=== PATIENT | female | born 1985 | race Asian ===

== ENCOUNTER 2017-07-11 07:10 | Inpatient (IN) | payer BC ==
[2017-07-11] MEDS ORDERED: Ondansetron 4 MG/2 ML SDV IVPUSH PRN ×2 (07:18→11:19)
[2017-07-11] MEDS ORDERED: Sodium Chloride 0.9% 10 ML Syringe FLUSH PRN (07:18)
[2017-07-11] MEDS ORDERED: Nalbuphine 20 MG/1 ML Amp IVPUSH PRN (07:18)
--- NOTE | 2017-07-11 07:21 | PCM.LDHP ---
L&D History of Present Illness - General Date of Service: 07/11/17 Admit Problem/Dx: Admission Diagnosis/Problem Admission Diagnosis/Problem Source of Information: Patient History Limitations: Reports: No Limitations - History of Present Illness Introduction:: Patient is a 32 y/o at 39 2/7 wks gestation who presents for elective IOL. This is a surrogate . Patient has been doing well. No complications throughout the . Biological father is here in town today , biological mother could not make it due to new diagnosis of leukemia. 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: : 5 Para: 4 LMP (Approximate): - Past Surgical History HEENT Surgical History: Reports: Oral Surgery (widom tooth) Female Surgical History: Reports: Cystectomy Social & Family History - Tobacco Use Smoking Status *Q: Never Smoker - Alcohol Use Alcohol Use History: No - Recreational Drug Use Recreational Drug Use: No H&P Review of Systems - Review of Systems: Review Of Systems: See Below General: Reports: No Symptoms Pulmonary: Reports: No Symptoms Cardiovascular: Reports: No Symptoms Gastrointestinal: Reports: No Symptoms Genitourinary: Reports: No Symptoms Musculoskeletal: Reports: No Symptoms Psychiatric: Reports: No Symptoms L&D Exam - Exam Exam: See Below - OB Specific Contraction Intensity: Irritability Movement: Active Heart Tones: Present Heart Tones per Min: 135 Heart Rate (FHR) Variability: Moderate (6-25 bmp) Presentation: Vertex - Keane Score Keane Score Cervix Position: Posterior Keane Score Consistency: Soft Keane Score Effacement: 51-70% Keane Score Dilation: 1-2 cm Keane Score Infant's Station: -1 ,0 Keane Score Total: 7 - Exam General: Alert, Oriented, Cooperative Lungs: Clear to Auscultation, Normal Respiratory Effort Cardiovascular: Regular Rate, Regular Rhythm GI/Abdominal Exam: Soft, Non-Tender Genitourinary: Normal external exam Extremities: Normal Inspection Skin: Warm, Dry, Intact - Patient Data Result Diagrams: 07/11/17 07:35 - Problem List (1) 39 weeks gestation of SNOMED Code(s): 66987150 ICD Code: Z3A.39 - 39 WEEKS GESTATION OF Status: Acute Current Visit: Yes (2) Surrogate SNOMED Code(s): 634727640 ICD Code: Z33.3 - STATE, GESTATIONAL CARRIER Status: Acute Current Visit: Yes (3) Elective induction of labor planned SNOMED Code(s): 299460267 ICD Code: [id number] - Status: Acute Current Visit: Yes Problem List Initiated/Reviewed/Updated: Yes Orders Last 24hrs: Active Orders 24 hr Category Date Time Status Communication Order [RC] ASDIRECTED Care 07/11/17 07:19 Ordered Communication Order [RC] ASDIRECTED Care 07/11/17 07:19 Ordered Communication Order [RC] ASDIRECTED Care 07/11/17 07:19 Ordered Monitoring [RC] INTERMITTENT Care 07/11/17 07:19 Ordered Notify Provider [RC] ASDIRECTED Care 07/11/17 07:19 Ordered Notify Provider [RC] PRN Care 07/11/17 07:19 Ordered Peripheral IV Care [RC] . DIRECTED Care 07/11/17 07:19 Ordered Up ad Sandra [RC] ASDIRECTED Care 07/11/17 07:19 Ordered Vaginal Exam [RC] ASDIRECTED Care 07/11/17 07:19 Ordered Vital Signs [RC] ASDIRECTED Care 07/11/17 07:19 Ordered Regular Diet [DIET] Diet 07/11/17 Breakfast Ordered CBC W/O DIFF,HEMOGRAM [HEME] Routine Lab 07/11/17 07:18 Ordered TYPE AND SCREEN [BBK] Routine Lab 07/11/17 07:18 Ordered Lactated Ringers [Ringers, Lactated] 1,000 ml Med 07/11/17 07:30 Ordered IV ASDIRECTED Nalbuphine [Nubain] Med 07/11/17 07:18 Ordered 10 mg IVPUSH Q2H PRN Ondansetron [Zofran] Med 07/11/17 07:18 Ordered 4 mg IVPUSH Q4H PRN Oxytocin/Lactated Ringers [Pitocin in LR 10 Units/1,000 Med 07/11/17 07:30 Ordered ML] 10 unit in 1,000 ml IV .CONTINUOUS Oxytocin/Lactated Ringers [Pitocin in LR 10 Units/1,000 Med 07/11/17 07:30 Ordered ML] 10 unit in 1,000 ml IV TITRATE Sodium Chloride 0.9% [Saline Flush] Med 07/11/17 07:18 Ordered 10 ml FLUSH ASDIRECTED PRN Electronic Heart Tones Internal [WOMSER] Per Unit Ot 07/11/17 07:19 Ordered Routine Peripheral IV Insertion Adult [OM.PC] Routine Oth 07/11/17 07:19 Ordered Resuscitation Status Routine Resus Stat 07/11/17 07:18 Ordered Assessment/Plan Comment:: 32-year-old at 39-2/7 weeks gestation presents for elective induction of labor * CBC and type and screen * GBS negative, no need for antibiotics * Pain management per patient preference * We'll start Pitocin and proceed with AROM when able * Anticipate * Hospital administration / oyster grader aware of surrogate status and have been working with the patient
[2017-07-11] MEDS ORDERED: Oxytocin/Lactated Ringers 10 UNIT/1,000 ML BAG IV SCH ×2 (07:30)
[2017-07-11] MEDS: Lactated Ringers 1,000 ML IV SCH ×2 (08:29→13:48)
[2017-07-11] MEDS ORDERED: Bupivacaine 0.25% 10 ML SDV ONE (10:00)
--- NOTE | 2017-07-11 10:11 | PCM.PREANE ---
Preanesthetic Assessment - Procedure Proposed Procedure: Labor Epidural - Anesthesia/Transfusion/Family Hx Anesthesia History: Prior Anesthesia Without Reaction Family History of Anesthesia Reaction: No Transfusion History: No Prior Transfusion(s) - Review of Systems General: No Symptoms Pulmonary: No Symptoms Cardiovascular: No Symptoms Gastrointestinal: No Symptoms Neurological: No Symptoms Other: Reports: None - Physical Assessment NPO Status Date: 07/11/17 NPO Status Time: 08:00 O2 Sat by Pulse Oximetry: 100 Respiratory Rate: 20 Vital Signs: Last Vital Signs Temp 36.1 C 07/11/17 07:37 Pulse 81 07/11/17 07:37 Resp 20 07/11/17 07:37 BP 146/88 H 07/11/17 07:37 Pulse Ox 100 07/11/17 07:37 Height: 1.65 m Weight: 84.822 kg ASA Class: 2 Mental Status: Alert & Oriented x3 Airway Class: Mallampati = 1 Dentition: Reports: Broken Tooth/Teeth (bottom left molar cracked) Thyro-Mental Finger Breadths: 3 Mouth Opening Finger Breadths: 3 ROM/Head Extension: Full Lungs: Clear to Auscultation, Normal Respiratory Effort Cardiovascular: Regular Rate, Regular Rhythm - Lab Values: Laboratory Last Values WBC 11.36 K/mm3 (3.98-10.04) H 07/11/17 07:35 RBC 4.39 M/mm3 (3.98-5.22) 07/11/17 07:35 Hgb 14.0 gm/L (11.2-15.7) 07/11/17 07:35 Hct 40.9 % (34.1-44.9) 07/11/17 07:35 MCV 93.2 fl (79.4-94.8) 07/11/17 07:35 MCH 31.9 pg (25.6-32.2) 07/11/17 07:35 MCHC 34.2 g/dl (32.2-35.5) 07/11/17 07:35 RDW Std Deviation 43.6 fL (36.4-46.3) 07/11/17 07:35 Plt Count 159 K/mm3 (182-369) L 07/11/17 07:35 MPV 12.2 fl (9.4-12.3) 07/11/17 07:35 Blood Type B POSITIVE 07/11/17 07:35 Gel Antibody Screen Negative 07/11/17 07:35 - Allergies Allergies/Adverse Reactions: Allergies Allergy/AdvReac Type Severity Reaction Status Date / Time No Known Allergies Allergy Verified 07/11/17 07:38 - Blood Blood Available: No Product(s) Available: None - Anesthesia Plan Pre-Op Medication Ordered: None - Acknowledgements Anesthesia Type Planned: Epidural (platelets 159) Pt an Appropriate Candidate for the Planned Anesthesia: Yes Alternatives and Risks of Anesthesia Discussed w Pt/Guardian: Yes Pt/Guardian Understands and Agrees with Anesthesia Plan: Yes 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: - Past Surgical History HEENT Surgical History: Reports: Oral Surgery (widom tooth) Female Surgical History: Reports: Cystectomy - SUBSTANCE USE Smoking Status *Q: Never Smoker Second Hand Smoke Exposure: No Recreational Drug Use History: No - CURRENT (IN HOUSE) MEDS Current Meds: Current Medications Lactated Ringer's (Ringers, Lactated) 1,000 mls @ 40 mls/hr IV ASDIRECTED GRACIELA Last Admin: 07/11/17 08:29 Dose: 40 mls/hr Oxytocin/Lactated Ringer's (Pitocin In Lr 10 Units/1,000 Ml) 10 unit in 1,000 mls @ 12 mls/hr IV TITRATE GRACIELA; 2 MUNITS/MIN PRN Reason: Protocol Last Titration: 07/11/17 09:43 Dose: 6 munits/min, 36 mls/hr Oxytocin/Lactated Ringer's (Pitocin In Lr 10 Units/1,000 Ml) 10 unit in 1,000 mls @ 500 mls/hr IV .CONTINUOUS GRACIELA Nalbuphine HCl (Nubain) 10 mg IVPUSH Q2H PRN PRN Reason: Pain (moderate 4-6) Ondansetron HCl (Zofran) 4 mg IVPUSH Q4H PRN PRN Reason: Nausea/Vomiting Sodium Chloride (Saline Flush) 10 ml FLUSH ASDIRECTED PRN PRN Reason: Keep Vein Open
[2017-07-11] MEDS ORDERED: diphenhydrAMINE 50 MG/ML SDV IVPUSH PRN (11:19)
[2017-07-11] MEDS ORDERED: fentaNYL 100 MCG/2 ML SDV EPIDUR PRN (11:19)
[2017-07-11] MEDS ORDERED: Bupivacaine/fentaNYL/NS 100 ML Bag EPIDUR SCH (11:30)
--- NOTE | 2017-07-11 12:28 | PCM.PNLD ---
Labor Progress Note - VS & Meds Vital Signs: Last Vital Signs Temp 36.1 C 07/11/17 07:37 Pulse 81 07/11/17 07:37 Resp 20 07/11/17 10:12 BP 146/88 H 07/11/17 07:37 Pulse Ox 100 07/11/17 10:12 Active Medications: Current Medications Diphenhydramine HCl (Benadryl) 25 mg IVPUSH Q6H PRN PRN Reason: Pruritis Fentanyl (Sublimaze) 100 mcg EPIDUR Q3H PRN PRN Reason: Pain Fentanyl/Bupivacaine HCl (Fentanyl/Bupivacaine/Ns 2 Mcg-0.125% 100 Ml) 100 ml EPIDUR ASDIRECTED GRACIELA Lactated Ringer's (Ringers, Lactated) 1,000 mls @ 40 mls/hr IV ASDIRECTED GRACIELA Last Admin: 07/11/17 08:29 Dose: 40 mls/hr Oxytocin/Lactated Ringer's (Pitocin In Lr 10 Units/1,000 Ml) 10 unit in 1,000 mls @ 12 mls/hr IV TITRATE GRACIELA; 2 MUNITS/MIN PRN Reason: Protocol Last Titration: 07/11/17 11:36 Dose: 12 munits/min, 72 mls/hr Oxytocin/Lactated Ringer's (Pitocin In Lr 10 Units/1,000 Ml) 10 unit in 1,000 mls @ 500 mls/hr IV .CONTINUOUS GRACIELA Nalbuphine HCl (Nubain) 10 mg IVPUSH Q2H PRN PRN Reason: Pain (moderate 4-6) Ondansetron HCl (Zofran) 4 mg IVPUSH Q4H PRN PRN Reason: Nausea/Vomiting Ondansetron HCl (Zofran) 4 mg IVPUSH ONETIME PRN PRN Reason: Nausea/Vomiting Sodium Chloride (Saline Flush) 10 ml FLUSH ASDIRECTED PRN PRN Reason: Keep Vein Open - Uterine Contractions Uterine Monitoring Mode: External Schurz Contraction Intensity: Moderate Uterine Resting Tone: Soft - Monitoring Monitor Mode: External Ultrasound Heart Rate (FHR) Baseline: 130 Heart Rate (FHR) Variability: Moderate (6-25 bmp) Accelerations: Present, 15x15 Decelerations: None Strip Review: Category I - Vaginal Exam Dilation (cm): 4 Effacement (Percent): 75 Station: -1 Cervical Position: Midposition - Labor Progress (Free Text) Labor Progress: Patient doing well. Feeling contractions are about a 3/10. Pitocin at 10. AROM performed with release of clear fluid. Planning epidural. Reassess as needed.
--- NOTE | 2017-07-11 16:13 | PCM.DEL ---
L & D Note - General Info Date of Service: 07/11/17 - Delivery Note Labor: Induced by ARM, Induced by Oxytocin Delivery Outcome: Livebirth Infant Delivery Method: Spontaneous Vaginal Delivery-Single Infant Delivery Mode: Spontaneous Presentation: Left Occiput Anterior (ARLETTE) Nuchal Cord: None Anesthesia Type: Epidural Amniotic Fluid Description: Clear Episiotomy Type: None Laceration: None Placenta: Intact, Spontaneous Cord: 3 Vessels Estimated Blood Loss: 350 Resuscitation Needed: Yes [place]: Bulb Syringe, Stimulated, Warmed, [place] Used, Warmer Used Score 1 min: 8 Score 5 min: 9 Delivery Comments (Free Text/Narrative):: Patient found to be complete and then began pushing. With maternal pushing effort head delivered from an ARLETTE presentation. No nuchal cord present. With gentle downward traction the shoulders and body delivered. Cord clamped and cut. Baby taken to the warmer. Cord blood collected. Placenta allowed time to separate and then expelled intact. No lacerations noted. - Patient Data Vitals - Most Recent: Last Vital Signs Temp 36.1 C 07/11/17 07:37 Pulse 81 07/11/17 07:37 Resp 20 07/11/17 10:12 BP 146/88 H 07/11/17 07:37 Pulse Ox 100 07/11/17 10:12 Weight - Most Recent: 84.822 kg I&O - Last 24 Hours: Intake & Output 07/11/17 07/11/17 07/11/17 06:59 14:59 22:59 Intake Total 120 Balance 120 Lab Results Last 24 Hours: Laboratory Results - last 24 hr 07/11/17 07/11/17 Range/Units 07:35 07:35 WBC 11.36 H (3.98-10.04) K/mm3 RBC 4.39 (3.98-5.22) M/mm3 Hgb 14.0 (11.2-15.7) gm/L Hct 40.9 (34.1-44.9) % MCV 93.2 (79.4-94.8) fl MCH 31.9 (25.6-32.2) pg MCHC 34.2 (32.2-35.5) g/dl RDW Std Deviation 43.6 (36.4-46.3) fL Plt Count 159 L (182-369) K/mm3 MPV 12.2 (9.4-12.3) fl Blood Type B POSITIVE Gel Antibody Screen Negative Med Orders - Current: Current Medications Diphenhydramine HCl (Benadryl) 25 mg IVPUSH Q6H PRN PRN Reason: Pruritis Fentanyl (Sublimaze) 100 mcg EPIDUR Q3H PRN PRN Reason: Pain Last Admin: 07/11/17 12:35 Dose: 100 mcg Fentanyl/Bupivacaine HCl (Fentanyl/Bupivacaine/Ns 2 Mcg-0.125% 100 Ml) 100 ml EPIDUR ASDIRECTED GRACIELA Last Admin: 07/11/17 12:36 Dose: 100 ml Lactated Ringer's (Ringers, Lactated) 1,000 mls @ 40 mls/hr IV ASDIRECTED GRACIELA Last Admin: 07/11/17 13:48 Dose: 40 mls/hr Oxytocin/Lactated Ringer's (Pitocin In Lr 10 Units/1,000 Ml) 10 unit in 1,000 mls @ 12 mls/hr IV TITRATE GRACIELA; 2 MUNITS/MIN PRN Reason: Protocol Last Titration: 07/11/17 12:40 Dose: 6 munits/min, 36 mls/hr Oxytocin/Lactated Ringer's (Pitocin In Lr 10 Units/1,000 Ml) 10 unit in 1,000 mls @ 500 mls/hr IV .CONTINUOUS GRACIELA Nalbuphine HCl (Nubain) 10 mg IVPUSH Q2H PRN PRN Reason: Pain (moderate 4-6) Ondansetron HCl (Zofran) 4 mg IVPUSH Q4H PRN PRN Reason: Nausea/Vomiting Ondansetron HCl (Zofran) 4 mg IVPUSH ONETIME PRN PRN Reason: Nausea/Vomiting Sodium Chloride (Saline Flush) 10 ml FLUSH ASDIRECTED PRN PRN Reason: Keep Vein Open - Problem List & Annotations (1) 39 weeks gestation of SNOMED Code(s): 67628371 Code(s): Z3A.39 - 39 WEEKS GESTATION OF Status: Acute Current Visit: Yes (2) Surrogate SNOMED Code(s): 521821823 Code(s): Z33.3 - STATE, GESTATIONAL CARRIER Status: Acute Current Visit: Yes (3) Elective induction of labor planned SNOMED Code(s): 279659222 Code(s): [id number] - Status: Acute Current Visit: Yes (4) Vaginal delivery SNOMED Code(s): 839931135 Code(s): O80 - ENCOUNTER FOR FULL-TERM UNCOMPLICATED DELIVERY Status: Acute Current Visit: Yes - Problem List Review Problem List Initiated/Reviewed/Updated: Yes - My Orders Last 24 Hours: My Active Orders 07/11/17 07:18 Nalbuphine [Nubain] 10 mg IVPUSH Q2H PRN Ondansetron [Zofran] 4 mg IVPUSH Q4H PRN Sodium Chloride 0.9% [Saline Flush] 10 ml FLUSH ASDIRECTED PRN Resuscitation Status Routine 07/11/17 07:19 Communication Order [RC] ASDIRECTED Communication Order [RC] ASDIRECTED Communication Order [RC] ASDIRECTED Monitoring [RC] INTERMITTENT Notify Provider [RC] ASDIRECTED Notify Provider [RC] PRN Peripheral IV Care [RC] . DIRECTED Up ad Sandra [RC] ASDIRECTED Vaginal Exam [RC] ASDIRECTED Vital Signs [RC] ASDIRECTED Electronic Heart Tones Internal [WOMSER] Per Unit Routine Peripheral IV Insertion Adult [OM.PC] Routine 07/11/17 07:30 Lactated Ringers [Ringers, Lactated] 1,000 ml IV ASDIRECTED Oxytocin/Lactated Ringers [Pitocin in LR 10 Units/1,000 ML] 10 unit in 1,000 ml IV .CONTINUOUS Oxytocin/Lactated Ringers [Pitocin in LR 10 Units/1,000 ML] 10 unit in 1,000 ml IV TITRATE 07/11/17 07:35 PATIENT RETYPE [BBK] Routine TYPE AND SCREEN [BBK] Routine 07/11/17 16:07 Patient Status Manage Transfer [TRANSFER] Routine 07/11/17 Breakfast Regular Diet [DIET] - Assessment Assessment:: 32 y/o G5 now P5005 PPD#0 from at 39 2/7 wks - Plan Plan:: * Routine cares * Patient plans to pump for biological family * Hospital administration / cook enchilada aware of surrogate status and have been working with the patient * Discharge home when patient desires
[2017-07-11] MEDS ORDERED: Docusate Sodium 100 MG Cap PO PRN (16:14)
[2017-07-11] MEDS ORDERED: Ibuprofen 600 MG Tab PO PRN (16:14)
[2017-07-11] MEDS ORDERED: Witch Hazel Medicated Pads 100/Jar TOP PRN (16:14)
[2017-07-11] MEDS ORDERED: Benzocaine/Menthol 20%-0.5% Spray 56 GM Canister TOP PRN (16:14)
[2017-07-11] MEDS ORDERED: Acetaminophen 325 MG Tab PO PRN (16:14)
--- NOTE | 2017-07-11 19:07 | PCM.DCSUM1 ---
Discharge Summary - Discharge Data Discharge Date: 07/11/17 Discharge Disposition: Home, Self-Care 01 Condition: Good - Discharge Diagnosis/Problem(s) (1) 39 weeks gestation of SNOMED Code(s): 61846127 ICD Code: Z3A.39 - 39 WEEKS GESTATION OF Status: Acute (2) Surrogate SNOMED Code(s): 002573028 ICD Code: Z33.3 - STATE, GESTATIONAL CARRIER Status: Acute (3) Elective induction of labor planned SNOMED Code(s): 192047352 ICD Code: [id number] - Status: Acute (4) Vaginal delivery SNOMED Code(s): 650077799 ICD Code: O80 - ENCOUNTER FOR FULL-TERM UNCOMPLICATED DELIVERY Status: Acute - Patient Summary/Data Operative Procedure(s) Performed: None Complications: None Consults: None Recommended Follow-up Testing/Procedures: Follow up in 5-6 weeks for check Hospital Course: 32 y/o presented at 39 2/7 wks for elective IOL in a surrogate . Induction started with pitocin and then AROM when able. She progressed quickly and underwent an uncomplicated . See delivery note. She did desire discharge same day, approximately 6 hours post delivery. This was felt reasonable. She was given strict instructions to return if any concerns - Patient Instructions Diet: Regular Diet as Tolerated Activity: As Tolerated Activity, Other: Pelvic rest for 6 weeks Driving: May Drive Today Showering/Bathing: May Shower Showering/Bathing, Other: May bathe Notify Provider of: Fever, Increased Pain, Swelling and Redness, Drainage, Nausea and/or Vomiting - Discharge Plan Home Medications: Home Meds Docusate Sodium [Colace] 100 mg PO BID PRN cap 07/11/17 [Rx] Ibuprofen [IJD: Ibuprofen] 600 mg PO Q6H PRN tablet 07/11/17 [Rx] Patient Handouts: Home Care Instructions for Mom, Breast Pumping Tips, Easy-to- Read Referrals: Ivonne Maloney MD [Primary Care Provider] - (5-6 weeks for check) - Discharge Summary/Plan Comment DC Time >30 min.: No - Patient Data Vitals - Most Recent: Last Vital Signs Temp 36.1 C 07/11/17 07:37 Pulse 81 07/11/17 07:37 Resp 20 07/11/17 10:12 BP 146/88 H 07/11/17 07:37 Pulse Ox 100 07/11/17 10:12 Weight - Most Recent: 84.822 kg I&O - Last 24 hours: Intake & Output 07/11/17 07/11/17 07/11/17 06:59 14:59 22:59 Intake Total 2120 120 Balance 2120 120 Lab Results - Last 24 hrs: Laboratory Results - last 24 hr 07/11/17 07/11/17 Range/Units 07:35 07:35 WBC 11.36 H (3.98-10.04) K/mm3 RBC 4.39 (3.98-5.22) M/mm3 Hgb 14.0 (11.2-15.7) gm/L Hct 40.9 (34.1-44.9) % MCV 93.2 (79.4-94.8) fl MCH 31.9 (25.6-32.2) pg MCHC 34.2 (32.2-35.5) g/dl RDW Std Deviation 43.6 (36.4-46.3) fL Plt Count 159 L (182-369) K/mm3 MPV 12.2 (9.4-12.3) fl Blood Type B POSITIVE Gel Antibody Screen Negative Med Orders - Current: Current Medications Acetaminophen (Tylenol) 650 mg PO Q4H PRN PRN Reason: mild pain or fever Benzocaine/Menthol (Dermoplast Pain Relief [place]) 0 gm TOP ASDIRECTED PRN PRN Reason: Perineal Comfort Measure Docusate Sodium (Colace) 100 mg PO BID PRN PRN Reason: Constipation Ibuprofen (Motrin) 600 mg PO Q6H PRN PRN Reason: Mild pain or fever [place] ([place]) 1 pad TOP ASDIRECTED PRN PRN Reason: Hemorrhoid pain Discontinued Medications Diphenhydramine HCl (Benadryl) 25 mg IVPUSH Q6H PRN PRN Reason: Pruritis Fentanyl (Sublimaze) 100 mcg EPIDUR Q3H PRN PRN Reason: Pain Last Admin: 07/11/17 12:35 Dose: 100 mcg Fentanyl/Bupivacaine HCl (Fentanyl/Bupivacaine/Ns 2 Mcg-0.125% 100 Ml) 100 ml EPIDUR ASDIRECTED GRACIELA Last Admin: 07/11/17 12:36 Dose: 100 ml Lactated Ringer's (Ringers, Lactated) 1,000 mls @ 40 mls/hr IV ASDIRECTED GRACIELA Last Admin: 07/11/17 13:48 Dose: 40 mls/hr Oxytocin/Lactated Ringer's (Pitocin In Lr 10 Units/1,000 Ml) 10 unit in 1,000 mls @ 12 mls/hr IV TITRATE GRACIELA; 2 MUNITS/MIN PRN Reason: Protocol Last Titration: 07/11/17 12:40 Dose: 6 munits/min, 36 mls/hr Oxytocin/Lactated Ringer's (Pitocin In Lr 10 Units/1,000 Ml) 10 unit in 1,000 mls @ 500 mls/hr IV .CONTINUOUS GRACIELA Nalbuphine HCl (Nubain) 10 mg IVPUSH Q2H PRN PRN Reason: Pain (moderate 4-6) Ondansetron HCl (Zofran) 4 mg IVPUSH Q4H PRN PRN Reason: Nausea/Vomiting Ondansetron HCl (Zofran) 4 mg IVPUSH ONETIME PRN PRN Reason: Nausea/Vomiting Sodium Chloride (Saline Flush) 10 ml FLUSH ASDIRECTED PRN PRN Reason: Keep Vein Open *Q Meaningful Use (DIS) - VTE *Q VTE Criteria *Q: - Stroke *Q Stroke Criteria *Q: - AMI *Q AMI Criteria *Q:
[2017-07-11 20:04] VITALS: BP 131/80
--- NOTE | 2017-07-12 09:35 | PCM48HPAN ---
Post Anesthesia Note - EVALUATION WITHIN 48HRS OF ANESTHETIC Vital Signs in Normal Range: Yes Patient Participated in Evaluation: Yes Respiratory Function Stable: Yes Airway Patent: Yes Cardiovascular Function Stable: Yes Hydration Status Stable: Yes Pain Control Satisfactory: Yes Nausea and Vomiting Control Satisfactory: Yes Mental Status Recovered: Yes - COMMENTS/OBSERVATIONS Free Text/Narrative:: Patient is gone already this morning. Reviewed her chart, VSS. Her nurse reports she did great and the epidural worked well. She did not have any complaints at discharge.
== END 2017-07-11 20:30 | disposition home or self-care (01) | DRG 560 ==
LOC: JD.OB 07:10 → OBSVTOIN 15:09
PROVIDERS: ADMIT Obstetrics & Gynecology; ATTEND Obstetrics & Gynecology
PROC: 10E0XZZ Delivery of Products of Conception, External Approach (ICD-10-PCS; principal; 2017-07-11)
PROC: 10907ZC Drainage of Amniotic Fluid, Therapeutic from Products of Conception, Via Natural or Artificial Opening (ICD-10-PCS; 2017-07-11)
PROC: 3E033VJ Introduction of Other Hormone into Peripheral Vein, Percutaneous Approach (ICD-10-PCS; 2017-07-11)
PROC: 00HU33Z Insertion of Infusion Device into Spinal Canal, Percutaneous Approach (ICD-10-PCS; 2017-07-11)
PROC: 3E0R3CZ (ICD-10-PCS; 2017-07-11)
DX: O80 Encounter for full-term uncomplicated delivery (principal); Z33.3 Pregnant state, gestational carrier; Z3A.39 39 weeks gestation of pregnancy; Z37.0 Single live birth
CPT/HCPCS: 36415; 59409; 85027; 86850; 86900; 86901; J2590; J3010; J7120